=== PATIENT | female | born 1990 | race Two or more races ===

== ENCOUNTER 2023-02-04 11:05 | Emergency (ER) | payer BC ==
[~2023-02-04] VITALS: Ht 170.2 cm; Wt 86.2 kg
--- NOTE | 2023-02-04 11:10 | NUR ---
RECEIVED PT 32 YRS FEMALE FROM HOME C/O NUBNESS ON LT ARM AND PAIN WITH SWALLEN ON LT HIP ABLE TO WALK AND AMBULATE
--- NOTE | 2023-02-04 11:30 | NUR ---
AT BED SIDE
[2023-02-04] MEDS ORDERED: ACETAMINOPHEN ES 500 MG TABLET ONE (12:28)
[2023-02-04] MEDS ORDERED: ACETAMINOPHEN 325 MG TABLET PO ONE (12:30)
--- NOTE | 2023-02-04 12:32 | NUR ---
US DONE AT BED SIDE
[2023-02-04 12:37] LABS: BASOPHILS # (AUTO) 0.1 K/uL (0.0-0.2); BASOPHILS % (AUTO) 0.7 % (0.0-2.0); HEMATOCRIT 37 % (33-45); LYMPHOCYTES # (AUTO) 1.7 K/uL (0.8-4.8); LYMPHOCYTES % (AUTO) 17.6 % (20.0-44.0); MEAN CORPUSCULAR HGB CONC 33 g/dl (31.0-36.0); MEAN CORPUSCULAR VOLUME 99 fL (82-100); MONOCYTES % (AUTO) 10.7 % (2.0-12.0); NEUTROPHILS # (AUTO) 6.4 K/uL (1.8-8.9); PLATELET COUNT (AUTO) 387 K/uL (150-450); RED BLOOD CELL COUNT(AUTO) 3.73 MIL/uL (4.0-5.2); WHITE BLOOD COUNT (AUTO) 9.6 K/uL (4.3-11.0)
[2023-02-04 13:01] LABS: CALCIUM, SERUM 9.2 mg/dL (8.5-10.1); POTASSIUM 4.9 mmol/L (3.5-5.1)
[2023-02-04 13:07] LABS: ALBUMIN 3.2 g/dL (3.4-5.0); BILIRUBIN,TOTAL 0.5 mg/dL (0.2-1.0); TOTAL PROTEIN, SERUM 6.7 g/dL (6.4-8.2)
--- NOTE | 2023-02-04 14:03 | NUR ---
AWAITING DIPOSITION OF PATIENT BY .
[2023-02-04] MEDS ORDERED: ACET325T53 PO (14:48)
--- NOTE | 2023-02-04 15:21 | NUR ---
RESTING AND ASLEEPY LOOKS COFORTABLE
--- NOTE | 2023-02-04 16:08 | NUR ---
Patient discharged to home in stable condition. Written and verbal after care instructions given. Patient verbalizes understanding of instruction.
[2023-02-04 16:22] VITALS: BP 120/89
== END 2023-02-04 16:24 | disposition home or self-care (01) ==
LOC: ER 11:13
DX: M25.552 Pain in left hip (principal); M25.551 Pain in right hip; R60.0 Localized edema; R20.0 Anesthesia of skin; M79.89 Other specified soft tissue disorders
CPT/HCPCS: 36415; 73521; 80053-TC; 84703-TC; 85025-TC; 93970-TC